=== PATIENT | male | born 1960 | race Caucasian/White ===

== ENCOUNTER 2017-10-09 07:30 | Inpatient (IN) | payer BC ==
--- NOTE | 2017-09-26 10:22 | HP ---
HISTORY AND PHYSICAL: DATE OF ADMISSION/SURGERY: 10/09/17 DATE OF OFFICE VISIT: 09/24/17 SURGEON: Gloria Lazo MD * (DICTATED BY BUNNY BERMUDEZ) PROCEDURE: Left total knee arthroplasty. CHIEF COMPLAINT: Left knee pain. HISTORY OF PRESENT ILLNESS: Mr. Weinberg is a 57-year-old gentleman with continued complaints of left knee pain. X-rays confirmed end-stage osteoarthritis. He has elected to proceed with a left total knee arthroplasty, which is scheduled for 10/09/[address] Lazo. PAST MEDICAL HISTORY: Hypertension and prior left femur fracture. PAST SURGICAL HISTORY: Bilateral total hip arthroplasties, surgery for ruptured spleen, unknown surgery for left femur fracture with a avinash placement and subsequently avinash removal. CURRENT MEDICATIONS: 1. [place]. 2. Lisinopril 20 mg daily. ALLERGIES: None. FAMILY HISTORY: Diabetes. SOCIAL HISTORY: He is a 57-year-old gentleman who lives alone. He does not smoke or use drugs. He uses alcohol often. REVIEW OF SYSTEMS: A complete 14-point review of systems was reviewed with the patient was all negative or noncontributory. He denies history of DVT, PE, hepatitis C, or HIV. PHYSICAL EXAMINATION GENERAL: He is well-developed, well-nourished, in no acute distress. VITAL SIGNS: He stands 6 feet tall, weighs 270 pounds. His blood pressure is 128/86, his heart rate is 80. HEENT: Normocephalic, atraumatic. NECK: Supple. No palpable lymph nodes. PULMONARY: Lungs are clear to auscultation bilaterally. CARDIO: Regular rate and rhythm. Strong S1 and S2. ABDOMEN: Soft, nontender, and nondistended. NEUROLOGIC: He is alert and oriented x3. Cranial nerves II through XII are intact. MUSCULOSKELETAL: Left lower extremity skin is intact. There are no open wounds or abrasions. He has a moderate effusion. His left lower extremity is at least 1 inch shorter than the right. Range of motion is 5 to 125 degrees of flexion with patellofemoral crepitus. No varus or valgus instability. 2+ dorsalis pedis pulses. His lower extremity muscular group strengths are intact at 5/5. He has intact sensation. ASSESSMENT AND PLAN: Mr. Weinberg is a 57-year-old gentleman with severe posttraumatic end-stage arthritis of the left knee. He has failed conservative management and elected to proceed with a left total knee arthroplasty, which is scheduled for 10/09/[address] Lazo discussed the risks and benefits of the surgery at today's visit and all of his questions were answered. He will follow with Dr. Lazo 2 weeks after the surgery. BUNNY BERMUDEZ [id number]/[facility] #: [id number] MTDKamryn
--- NOTE | 2017-10-27 14:47 | HP ---
HISTORY AND PHYSICAL: DATE OF ADMISSION/SURGERY: 11/13/17 SURGEON: Gloria Lazo MD * (DICTATED BY BUNNY BERMUDEZ) PROCEDURE: Left total knee arthroplasty. CHIEF COMPLAINT: Left knee pain. HISTORY OF PRESENT ILLNESS: Mr. Weinberg is 57-year-old gentleman who complains of some left knee pain secondary to end-stage osteoarthritis. He has failed conservative management and elected to proceed with a left total knee arthroplasty, which is scheduled for 11/13/17. PAST MEDICAL HISTORY: Hypertension, prior femur fracture on the left. PAST SURGICAL HISTORY: Bilateral total hip arthroplasties, IM avinash at the left femur, removal of avinash from the left femur and surgery for ruptured spleen. MEDICATIONS: 1. [place] 5/325. 2. Lisinopril 20 mg daily. ALLERGIES: None. FAMILY HISTORY: Diabetes. SOCIAL HISTORY: The 57-year gentleman lives alone. He does not smoke or use drugs. Uses occasional alcohol. REVIEW OF SYSTEMS: A complete 14 point review of systems was reviewed with the patient and it was all negative or noncontributory. PHYSICAL EXAMINATION GENERAL: He is well developed, well nourished, in no acute distress. VITAL SIGNS: He stands 6 feet tall, weighs 278 pounds. His blood pressure is 118/80, his heart rate is 80. HEENT: Normocephalic, atraumatic. NECK: Supple. No palpable lymph nodes. PULMONARY: Lungs are clear to auscultation bilaterally. CARDIO: Regular rate and rhythm. Strong S1 and S2. ABDOMEN: Soft, nontender, nondistended. NEUROLOGIC: Alert and oriented x3. Cranial nerves II through XII are intact. MUSCULOSKELETAL: Left lower extremity skin is intact. There are no open wounds or abrasions. He has some tenderness over the medial and lateral joint line. Range of motion 5 to 125 degrees of flexion with patellofemoral crepitus. No varus or valgus instability. 2+ dorsalis pedis pulses. Lower extremity muscular group strengths are intact at 5/5 and he has intact sensation. ASSESSMENT AND PLAN: Mr. Weinberg is a 57-year-old gentleman with complaints of left knee pain secondary to end-stage osteoarthritis. He has failed conservative management and elected to proceed with a left total knee arthroplasty, which is scheduled for 11/13/[address] Lazo discussed the risks and benefits of the surgery on today's visit. All of his questions are answered. He will follow up with Dr. Lazo 2 weeks after the surgery. BUNNY BERMUDEZ [id number]/[facility] #: [id number] NICO
[2017-11-12] MEDS ORDERED: Buffered Lidocaine 0.9% SYRIN* 5 ML/SYR SYRINGE INTRADERM ONE (11:53)
--- OUTSIDE RECORDS SUMMARY | 2017-11-13 08:10 | XMS REPORT ---
:1960 External Reference #:[id number] Author Organization [employer] Address [address] [address] Phone [phone] Care Team Providers Name Role Phone Omar Berry MD Primary Care Physician Unavailable Payers Type Date Identification Numbers Payment Provider Subscriber Commercial Effective: Policy Number: JENNIFER Piper Granados 2013 [id number] PayID: [id number] [facility] [id number] [address] [id number] Medigap Part B Effective: 2012 Policy Number: BS Piper Granados [id number] Expires: 2013 PayID: [id number] [facility] [id number] [address] Lu[address] [id number] Medigap Part B Effective: 2010 Policy Number: BS Piper Granados [id number] Expires: 2012 PayID: [id number] [place] [address] JAQUELIN Luong [id number] Problems Date Description Provider Status Onset: 08/27/2017 Localized, primary osteoarthritis Gloria Lazo M.D. Active Onset: 03/17/2017 Prosthetic arthroplasty of the hip Gloria Lazo M.D. Active Family History Date Family Member(s) Problem(s) Comments General Diabetes Social History Type Date Description Comments Lives With Alone Occupation Senior Loan [employer] ETOH Use Currently consumes alcohol Smoking Patient has never smoked Exercise Type/Frequency Does not exercise Allergies, Adverse Reactions, Alerts Date Description Reaction Status Severity Comments 03/17/2017 NKDA active Medications Medication Date Status Form Strength Qnty SIG Indications Ordering Provider Hydrocodone-Aceta 08/27/ Active Tablets 5-325mg 90tabs 1 tabs by M25.462 Gloria minophen 2018 mouth [place], every 6-8 M.D. hours as needed for pain. Lisinopril / Active Tablets 20mg 1 by mouth Unknown 0000 every day No Active 08/27/ Hx Unknown Medications 2017 - 2017 No Active 03/17/ Hx Unknown Medications 2016 - 2016 Vicodin 03/17/ Hx Tablets 5-300mg 60tabs 1-2 tabs M54.5 Gloria 2016 - by mouth [place], 08/09/ q12 hours M.D. 2016 as needed pain Cyclobenzaprine 03/17/ Hx Tablets 10mg 30tabs 1 tablet M54.5 Gloria HCL 2016 - by mouth [place], 08/09/ q8 hours M.D. 2016 as needed muscle spasms Coumadin 12/31/ Hx Tablets 2.5mg 90tabs take 1-3 Dirk 2011 - as Jennifer, 08/11/ directed M.D. 2017 at 5pm daily Percocet 12/31/ Hx Tablets 5-325mg 90tabs 1-2 tabs Dirk 2011 - po q4-6 Jennifer, 08/11/ prn pain M.D. 2016 Percocet 11/12/ Hx Tablets 5-325mg 20tabs 1 po q6h Dirk 2012 - prn pain Jennifer, 12/31/ M.D. 2011 Medications Administered in Office Medication Date Status Form Strength Qnty SIG Indications Ordering Provider Depomedrol Administered Injection Gloria 40MG Iván Lazo M.D. Vital Signs Date Vital Result Comment 10/27/2017 Height 72 inches 6'0" Weight 278.00 lb Heart Rate 80 /min BP Systolic 118 mmHg BP Diastolic 80 mmHg BMI (Body Mass Index) 37.7 kg/m2 09/24/2017 Height 72 inches 6'0" Weight 270.00 lb Heart Rate 80 /min BP Systolic 128 mmHg BP Diastolic 86 mmHg Body Temperature 98.4 F BMI (Body Mass Index) 36.6 kg/m2 08/27/2017 Height 72 inches 6'0" Weight 278.00 lb w/ boots Heart Rate 64 /min reg BP Systolic Sitting 120 mmHg Lue BP Diastolic Sitting 86 mmHg Lue Respiratory Rate 16 /min Pain Level 7 left knee BMI (Body Mass Index) 37.7 kg/m2 03/17/2017 Height 72 inches 6'0" Weight 250.00 lb Heart Rate 104 /min BP Systolic 188 mmHg BP Diastolic 122 mmHg BMI (Body Mass Index) 33.9 kg/m2 Results Test Date Test Result H/L Range Note CBC Auto Diff 10/06/2017 White Blood Count 12.6 10^3/uL High 3.5-10.8 1 Red Blood Count 5.43 10^6/uL High 4.0-5.4 1 Hemoglobin 17.0 g/dL 14.0-18.0 1 Hematocrit 48 % 42-52 1 Mean Corpuscular Volume 89 fL 80-94 1 Mean Corpuscular Hemoglobin 31 pg 27-31 1 Mean Corpuscular HGB Conc 35 g/dL 31-36 1 Red Cell Distribution Width 14 % 10.5-15 1 Platelet Count 246 10^3/uL 150-450 1 Mean Platelet Volume 7 um3 Low 7.4-10.4 1 Abs Neutrophils 9.5 10^3/uL High 1.5-7.7 1 Abs Lymphocytes 2.0 10^3/uL 1.0-4.8 1 Abs Monocytes 0.8 10^3/uL 0-0.8 1 Abs Eosinophils 0.2 10^3/uL 0-0.6 1 Abs Basophils 0.1 10^3/uL 0-0.2 1 Abs Nucleated RBC 0.1 10^3/uL 1 Granulocyte % 75.6 % 38-83 1 Lymphocyte % 16.0 % Low 25-47 1 Monocyte % 6.3 % 0-7 1 Eosinophil % 1.5 % 0-6 1 Basophil % 0.6 % 0-2 1 Nucleated Red Blood Cells % 0.8 1 Urinalysis Profile 10/06/2017 Urine Color Yuliana 1 Urine Appearance Cloudy 1 Urine Specific [place] 1.021 1.010-1.030 1 Urine pH 6.0 5-9 1 Urine Urobilinogen Negative Negative 1 Urine Ketones Negative Negative 1 Urine Protein 1+(30 mg/dL) Negative 1 Urine Leukocytes Negative Negative 1 Urine Blood Negative Negative 1 Urine Nitrite Negative Negative 1 Urine Bilirubin Negative Negative 1 Urine Glucose Negative Negative 1 Urine White Blood Cell Trace(0-5/hpf) Absent 1 Urine Red Blood Cell Trace(0-2/hpf) Absent 1 Urine Bacteria Absent Absent 1 Comp Metabolic Panel 10/06/2017 Sodium 135 mmol/L 133-145 1 Potassium 4.5 mmol/L 3.5-5.0 1 Chloride 95 mmol/L Low 101-111 1 Co2 Carbon Dioxide 33 mmol/L High 22-32 1 Anion Gap 7 mmol/L 2-11 1 Glucose 100 mg/dL 70-100 1 Blood Urea Nitrogen 21 mg/dL 6-24 1 Creatinine 0.90 mg/dL 0.67-1.17 1 BUN/Creatinine Ratio 23.3 High 8-20 1 Calcium 10.9 mg/dL High 8.6-10.3 1 Total Protein 8.3 g/dL 6.4-8.9 1 Albumin 5.3 g/dL High 3.2-5.2 1 Globulin 3.0 g/dL 2-4 1 Albumin/Globulin Ratio 1.8 1-3 1 Total Bilirubin 1.20 mg/dL High 0.2-1.0 1 Alkaline Phosphatase 88 U/L 34-104 1 Alt 22 U/L 7-52 1 Ast 21 U/L 13-39 1 Egfr Non- 87.3 >60 1 Egfr 112.3 >60 1, 2 Inr/Protime 10/06/2017 Inr 0.93 0.77-1.02 1 Laboratory test finding 10/06/2017 Partial Thrombo Time 34.2 seconds 26.0 -36.3 1 PTT Type & Screen 10/06/2017 Patient Blood Type O Negative 1 Antibody Screen NEGATIVE 1 Urine Culture And 10/06/2017 Urine Culture SEE RESULT 1, 3 Sensitivities BELOW CBC Auto Diff 02/23/2013 White Blood Count 13.3 10^3/uL High 4.8-10.8 Red Blood Count 4.63 10^6/uL 4.0-5.4 Hemoglobin 16.6 g/dL 14.0-18.0 Hematocrit 46 % 42-52 Mean Corpuscular Volume 99 fL High 80-94 Mean Corpuscular Hemoglobin 36 pg High 27-31 Mean Corpuscular HGB Conc 36 g/dL 31-36 Red Cell Distribution Width 13 % 10.5-15 Platelet Count 150 10^3/uL 150-450 Mean Platelet Volume 7 um3 Low 7.4-10.4 Abs Neutrophils 11.1 10^3/uL High 1.5-7.7 Abs Lymphocytes 1.2 10^3/uL 1.0-4.8 Abs Monocytes 0.9 10^3/uL High 0-0.8 Abs Eosinophils 0 10^3/uL 0-0.6 Abs Basophils 0 10^3/uL 0-0.2 Abs Nucleated RBC 0.01 10^3/uL Granulocyte % 83.3 % High 38-83 Lymphocyte % 9.1 % Low 25-47 Monocyte % 7.0 % 1-9 Eosinophil % 0.3 % 0-6 Basophil % 0.3 % 0-2 Nucleated Red Blood Cells % 0.1 Comp Metabolic Panel 02/23/2013 Sodium 136 mmol/L 133-145 Potassium 3.2 mmol/L Low 3.5-5.0 Chloride 97 mmol/L Low 101-111 Co2 Carbon Dioxide 26.0 mmol/L 22-32 Anion Gap 13.0 mmol/L High 2-11 Glucose 122 mg/dL High 70-100 Blood Urea Nitrogen 13 mg/dL 6-24 Creatinine 1.40 mg/dL 0.50-1.40 BUN/Creatinine Ratio 9.3 8-20 Calcium 9.7 mg/dL 8.1-9.9 Total Protein 8.1 g/dL 6.2-8.1 Albumin 4.5 g/dL 3.6-5.4 Globulin 3.6 g/dL 2-4 Albumin/Globulin Ratio 1.3 1-3 Total Bilirubin 2.7 mg/dL High 0.4-1.5 Alkaline Phosphatase 100 U/L 30-110 Alt 28 U/L 14-54 Ast 42 U/L 12-42 Egfr Non- 53.4 >60 Egfr 68.7 >60 4 Laboratory test finding 02/23/2013 Magnesium 1.7 mg/dL 1.7-2.6 Lipase 18 U/L Low 22-51 Bilrubin And Indirect 02/23/2013 Direct Bilirubin 0.5 mg/dL 0.1-0.5 Indirect Bilirubin 2.2 mg/dL High 0.3-1.0 1 PAIN IN LEFT KNEE, EFFUSION, LEFT KNEE, UNILATERAL 2 Because ethnic data is not always readily available, this report includes an eGFR for both -Americans and non- Americans. The National Kidney Disease Education Program (NKDEP) does not endorse the use of the MDRD equation for patients that are not between the ages of 18 and 70, are , have extremes of body size, muscle mass, or nutritional status, or are non- or non-. According to the National Kidney Foundation, irrespective of diagnosis, the stage of the disease is based on the level of kidney function: Stage Description GFR(mL/min/1.73 m(2)) 1 Kidney damage with normal or decreased GFR 90 2 Kidney damage with mild decrease in GFR 60-89 3 Moderate decrease in GFR 30-59 4 Severe decrease in GFR 15-29 5 Kidney failure <15 (or dialysis) 3 SEE RESULT BELOW Name: DANICA GRANADOS : [address]: Gloria Lazo MD Acct: [id number] Unit: [id number] AGE: 57 Location: [facility] Re10/06/17 SEX: M Status: REG REF SPEC: [id number] BETH: 10/06/17-[address] [facility] [address]: Gloria Lazo MD REQ: [id number] RECD: 10/06/17167 STATUS: LAITH CEBALLOS DR: Omar Berry MD _ SOURCE: URINE SPDESC: ORDERED: Urine Culture QUERIES: Urine Source: Clean Catch Procedure Result Reported Site Urine Culture Final 10/07/17- 1211 ML No Growth (<1,000 CFU/mL) * ML - MAIN LAB ([facility]) . END OF REPORT * ML=Testing performed at Main Lab DEPARTMENT OF PATHOLOGY, [address] [place] [address] Tiago Regalado M.D. Director [facility] # [id number] 4 Because ethnic data is not always readily available, this report includes an eGFR for both -Americans and non- Americans. The National Kidney Disease Education Program (NKDEP) does not endorse the use of the MDRD equation for patients that are not between the ages of 18 and 70, are , have extremes of body size, muscle mass, or nutritional status, or are non- or non-. According to the National Kidney Foundation, irrespective of diagnosis, the stage of the disease is based on the level of kidney function: Stage Description GFR(mL/min/1.73 m(2)) 1 Kidney damage with normal or decreased GFR 90 2 Kidney damage with mild decrease in GFR 60-89 3 Moderate decrease in GFR 30-59 4 Severe decrease in GFR 15-29 5 Kidney failure <15 (or dialysis) Procedures Date CPT Code Description Status 08/27/2017 87234 Inject/Drain Joint/Bursa Major Completed 06/09/2014 18877 ECHO Stress Test Incl Perf Contiuous ekg Monitoring Completed W/Phys Superv 02/07/2012 46645 Rad Exam; Hip Unilat Completed 02/07/2012 70287 Rad Exam; Pelvis Completed 01/07/2012 66192 THR Total Hip Replacement Completed 01/07/2012 20561 THR Total Hip Replacement Completed 11/13/2011 66637 Rad Exam; Hip Unilat Completed 11/13/2011 86611 Rad Exam; Pelvis Completed Encounters Type Date Location Provider CPT E/M Dx Office Visit 08/27/2017 [facility] Lazo M.D. 74988 M25.562 10:00a [facility] [place] M25.462 M17.12 Office Visit 03/17/2017 3:30p [facility] Lazo M.D. 47578 M54.5 C.M.A. Z96.641 Z96.642 Office Visit 08/19/2012 10:45a [facility]a Szymanski, 20262 715.95 C.M.A. RPA-C Office Visit 11/13/2011 1:30p [facility] Venkat Rodriguez M.D. 67030 715.95 C.M.A. Plan of Care Future Appointment(s):11/13/2017 2:30 pm - Gloria Lazo M.D. at [facility] [place]10/27/2017 - Gloria Lazo M.D.M25.562 Pain in left kneeFollow up:Follow up: 2 weeks after vhnzxxeN69.462 Effusion, left kneeM17.12 Unilateral primary osteoarthritis, left knee
[2017-11-13] MEDS ORDERED: ceFAZolin 1 GM in Dextrose (*) 1 GM/50 ML BAG IVPB ONE (08:25)
[2017-11-13] MEDS ORDERED: ceFAZolin 2 GM PREMIX (*) 2 GM/50 ML BAG IVPB ONE (08:25)
[2017-11-13] MEDS ORDERED: Famotidine IV* 10 MG/ML 2 ML (20 mg) ONE (10:03)
[2017-11-13] MEDS ORDERED: fentaNYL* 50 MCG/ML 2 ML VIAL (100 MCG VIAL) ONE (10:03)
[2017-11-13] MEDS ORDERED: Midazolam* 1 MG/ML 5 ML VIAL (5 MG) ONE ×2 (10:03→11:16)
[2017-11-13] MEDS ORDERED: ROPIVACAINE 5 MG/ML 30 ML BTL (0.5%) ONE (10:06)
[2017-11-13] MEDS ORDERED: Bupivacaine 0.5% SDV PF* 10-30ML VIAL ONE (11:17)
[2017-11-13] MEDS ORDERED: Bupivacaine-MPF SPINAL* 7.5 MG/2 ML AMP ONE (11:21)
[2017-11-13] MEDS ORDERED: Dexmedetomidine* 200 MCG/2 ML 2 ML VIAL ONE (11:36)
[2017-11-13] MEDS ORDERED: Dexamethasone IV* 4 MG/ML 1 ML (4 MG) ONE (11:37)
[2017-11-13] MEDS ORDERED: diPHENhydraMINE IV* 50 MG/ML 1 ml VIAL (BENADRYL) ONE (11:42)
[2017-11-13] MEDS ORDERED: Midazolam* 1 MG/ML 2 ML VIAL (2 MG) ONE (11:45)
[2017-11-13] MEDS ORDERED: Hetastarch in NS* 500 ML IV ONE (11:59)
[2017-11-13] MEDS ORDERED: Magnesium Hydroxide LIQ* 30 ML UDC PO PRN (12:53)
[2017-11-13] MEDS ORDERED: diPHENhydraMINE IV* 50 MG/ML 1 ml VIAL (BENADRYL) IV PRN (12:53)
[2017-11-13] MEDS ORDERED: Ondansetron INJ* 2 MG/ML VIAL IV PRN (12:53)
[2017-11-13] MEDS ORDERED: Cyclobenzaprine TAB* 10 MG PO PRN (12:53)
[2017-11-13] MEDS ORDERED: oxyCODONE/Acetamin 5/325 MG* TAB PO PRN (12:53)
[2017-11-13] MEDS ORDERED: Bupivacaine 0.25% SDV* 30 ML ONE (13:14)
--- NOTE | 2017-11-13 13:40 | RAD ---
INDICATION: Total LEFT knee replacement. COMPARISON: August 27, 2017 radiographs. TECHNIQUE: 2.4 seconds fluoroscopy. FINDINGS: Spot AP image documents total knee prosthesis in place. IMPRESSION: Procedural fluoroscopy. CPT II Codes: G9500
[2017-11-13] MEDS ORDERED: Naloxone* 0.4 MG/ML 1 ML VIAL IV PRN (14:31)
[2017-11-13] MEDS ORDERED: DiMENhydriNATE IV* 50 MG/ML VIAL IV PUSH PRN (14:31)
[2017-11-13] MEDS ORDERED: Ketorolac INJ* 30 MG/ML 1 ML VIAL IV PRN (14:31)
[2017-11-13] MEDS ORDERED: fentaNYL* 50 MCG/ML 2 ML VIAL (100 MCG VIAL) IV PRN (14:31)
[2017-11-13] MEDS ORDERED: Acetaminophen TAB* 325 MG PO PRN (14:31)
[2017-11-13] MEDS ORDERED: PROCHLORPERAZINE INJ 5 MG/ML 2 ML VIAL IV PRN (14:31)
--- NOTE | 2017-11-13 15:31 | RAD ---
INDICATION: Left total replacement COMPARISON: August 27, 2017 TECHNIQUE: Portable AP and crosstable lateral were obtained. FINDINGS: There is interval left knee arthroplasty. Both femoral and tibial components appear well seated. There is no overlying cooling jacket. IMPRESSION: LEFT KNEE ARTHROPLASTY. NO EVIDENCE OF HARDWARE FAILURE
[2017-11-13] MEDS: oxyCODONE/Acetamin 5/325 MG* TAB PO PRN ×2 (17:55→22:13)
[2017-11-13] MEDS ORDERED: Warfarin TAB(*) 6 MG PO ONE (18:00)
[2017-11-13] MEDS: Morphine INJ* 2 MG/ML 1 ML CARPUJECT IV PRN ×2 (19:04→21:15)
[2017-11-13] MEDS: Docusate CAP* 100 MG PO SCH (19:28)
[2017-11-13] MEDS: ceFAZolin 1 GM in Dextrose (*) 1 GM/50 ML BAG IVPB SCH (19:29)
[2017-11-13] MEDS: Magnesium Hydroxide LIQ* 30 ML UDC PO SCH (19:38)
[2017-11-13] MEDS: oxyCODONE TAB* 5 MG TAB PO PRN (20:12)
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
[2017-11-14] MEDS: oxyCODONE TAB* 5 MG TAB PO PRN ×3 (00:21→10:09)
[2017-11-14] MEDS: oxyCODONE/Acetamin 5/325 MG* TAB PO PRN ×4 (03:08→16:14)
[2017-11-14] MEDS: Morphine INJ* 2 MG/ML 1 ML CARPUJECT IV PRN ×2 (03:09→13:13)
[2017-11-14] MEDS: ceFAZolin 1 GM in Dextrose (*) 1 GM/50 ML BAG IVPB SCH ×2 (03:50→12:09)
[2017-11-14 05:41] LABS: Hematocrit 35 % (42-52); Hemoglobin 12.4 g/dl (14.0-18.0); Mean Platelet Volume 6.7 um3 (7.4-10.4); Platelet Count 214 10^3/ul (150-450)
[2017-11-14 05:45] LABS: INR 1.11 (0.77-1.02)
[2017-11-14 05:56] LABS: EGFR Non-African American 107.7 (>60)
--- NOTE | 2017-11-14 08:58 | PN ---
Progress Note - Progress Note Date of Service: 11/14/17 SOAP: Subjective: 57 y/o male s/p L TKA by Dr. Lazo 11/13/2017. VSS, afebrile overnight. Patient reports pain controlled with pain medication, worked well with PT, would like D/C to home tomorrow. NO questions re: surgery. Objective: General- Well appearing, NAD, AO sitting in chair comfortably. MSK- LLE- DF/PF = b/l, PT 2+, negative homans sign b/l, surgical dressing intact , acute blood loss noted on dressing near where drain was pulling by DR. Lazo this AM, area visualized, no acute bleeding seen, re-dressed with gauze with original YAEL. Vital Signs Temp 98.0 F 11/14/17 11:32 Pulse 79 11/14/17 11:32 Resp 18 11/14/17 12:09 BP 109/72 11/14/17 11:32 Pulse Ox 99 11/14/17 11:32 Intake & Output 11/13/17 11/14/17 11/14/17 18:59 06:59 18:59 Intake Total 3060 1747 Output Total 750 1075 Balance 2310 672 Weight 126.371 kg Intake: IV Fluids 2600 997 HEXTEND 500 LR 2000 997 NS 50ML, Cefazolin 1G 50 NS 50ML, Cefazolin 2G 50 IVPB 50 ABX - CEFAZOLIN 50 Oral 460 700 Output: Urine 0 Kamara 750 1075 Assessment: Stable 57 y/o male s/p L TKA by Dr. Lazo 11/13/2017. Plan: - DVT prophylaxis- lovenox, coumadin 5mg tonight, INR 1.11 - Continue PT/ OT - Follow up with Dr. Lazo within 10-14 days - H&H - stable - post-op IV ABX - Running. - Probably D/C tomorrow to home with VNS, PT - Continue to monitor drain site. Acetaminophen (Tylenol Tab*) 650 mg PO ONCE PRN PRN Reason: PAIN - MILD Cyclobenzaprine HCl (Flexeril Tab*) 10 mg PO TID PRN PRN Reason: SPASMS Last Admin: 11/13/17 19:04 Dose: 10 mg Diphenhydramine HCl (Benadryl Iv*) 25 mg IV Q6H PRN PRN Reason: itching Last Admin: 11/13/17 22:14 Dose: 25 mg Docusate Sodium (Colace Cap*) 100 mg PO BID [facility] Last Admin: 11/14/17 09:32 Dose: 100 mg Enoxaparin Sodium (Lovenox(*)) 30 mg SUBCUT Q24H [facility] Last Admin: 11/14/17 09:34 Dose: 30 mg Folic Acid (Folvite Tab*) 1 mg PO DAILY [facility] Last Admin: 11/14/17 09:32 Dose: 1 mg Lactated Ringer's (Lactated Ringers 1000 Ml Bag*) 1,000 mls @ 100 mls/hr IV PER RATE [facility] Last Admin: 11/14/17 03:11 Dose: 100 mls/hr Lactulose (Lactulose*) 30 ml PO Q6H PRN PRN Reason: constipation Magnesium Hydroxide (Milk Of Magnesia Liq*) 30 ml PO BID [facility] Last Admin: 11/14/17 09:33 Dose: 30 ml Magnesium Hydroxide (Milk Of Magnesia Liq*) 30 ml PO Q6H PRN PRN Reason: constipation Morphine Sulfate (Morphine Inj (Syringe)*) 2 mg IV Q2H PRN PRN Reason: PAIN Last Admin: 11/14/17 03:09 Dose: 2 mg Multivitamins/Minerals (Theragran/Minerals Tab*) 1 tab PO DAILY [facility] Last Admin: 11/14/17 09:33 Dose: 1 tab Ondansetron HCl (Zofran Inj*) 4 mg IV Q6H PRN PRN Reason: nausea Oxycodone HCl (Roxycodone Tab*) 10 mg PO Q4H PRN PRN Reason: PAIN - SEVERE Last Admin: 11/14/17 10:09 Dose: 10 mg Oxycodone/Acetaminophen (Percocet 5/325 Tab*) 2 tab PO Q4H PRN PRN Reason: PAIN - MODERATE TO SEVERE Last Admin: 11/14/17 12:09 Dose: 2 tab Oxycodone/Acetaminophen (Percocet 5/325 Tab*) 1 tab PO Q4H PRN PRN Reason: PAIN - MODERATE Pharmacy Profile Note (Coumadin Daily Reminder*) 1 note FOLLOW UP 1700 [facility] Last Admin: 11/13/17 17:22 Dose: 1 note Thiamine HCl (Vitamin B-1 Tab*) 100 mg PO DAILY [facility] Last Admin: 11/14/17 09:33 Dose: 100 mg Warfarin Sodium (Coumadin Tab(*)) 5 mg PO ONCE@1700 ONE PRN Reason: Protocol Stop: 11/14/17 17:01
[2017-11-14] MEDS ORDERED: Vitamin THERAPEUTIC TAB PO SCH (09:00)
[2017-11-14] MEDS ORDERED: Influenza VAC *QUAD* 2017-18* 0.5 ML SYRINGE IM ONE (09:00)
[2017-11-14] MEDS ORDERED: Folic Acid TAB* 1 MG PO SCH (09:00)
[2017-11-14] MEDS ORDERED: Enoxaparin(*) 30 MG/0.3 ML SYR SUBCUT SCH (09:00)
[2017-11-14] MEDS ORDERED: Multivitamins/Minerals TAB PO SCH (09:00)
[2017-11-14] MEDS ORDERED: Lisinopril TAB* 10 MG PO SCH (09:00)
[2017-11-14] MEDS ORDERED: Thiamine TAB* 100 MG TAB PO SCH (09:00)
[2017-11-14] MEDS: Docusate CAP* 100 MG PO SCH (09:32)
[2017-11-14] MEDS: Magnesium Hydroxide LIQ* 30 ML UDC PO SCH (09:33)
[2017-11-14 12:12] VITALS: BP 109/72
--- NOTE | 2017-11-14 12:33 | OP ---
OPERATIVE REPORT: DATE OF OPERATION: 11/13/17 DATE OF : 62 SURGEON: Gloria Lazo MD COORDINATOR CARDIOPULMONARY SERVICES: BUNYN Bermudez Ms. did help throughout the procedure with preparation of the leg, wound retraction, manipulation of the knee, and wound closure. ANESTHESIOLOGIST: Robert Hoyos MD ANESTHESIA: Spinal. PRE-OP DIAGNOSIS: Severe end-stage degenerative osteoarthritis of the left knee joint. POST-OP DIAGNOSIS: Severe end-stage degenerative osteoarthritis of the left knee joint. OPERATIVE PROCEDURE: Left total knee arthroplasty. INDICATIONS: Mr. Weinberg is a 57-year-old gentleman with years of increasingly severe left knee pain. The patient failed conservative treatment with antiinflammatories, pain medication, intraarticular injection, and physical therapy. His radiograph showed [id number] arthritis. The patient elected to undergo left total knee arthroplasty due to continued pain and decreased quality of life. The patient had a prior femur fracture, therefore custom implant cutting guides were chosen, these were obtained using full length films, MRI, and the [employer] system. Informed consent was obtained from the patient. He understood the risks of surgery included but were not limited to bleeding, infection, damage to nearby structures, continued pain, need for further surgery, intraoperative fracture, nerve palsy, hardware failure or loosening, knee stiffness, loss of motion, stroke, heart attack, blood clot, and . He wished to proceed. HARDWARE USED: This is cemented [employer] total knee arthroplasty hardware. Two packages of Simplex bone cement. For the femur, a left size 7 Legion posterior stabilized femoral component. For the tibia, a left size 6 Katelyn II tibial baseplate. For the insert, a 9-mm posterior stabilized articular insert 5/6 and for the patella 35 mm 3-peg all poly patella. TOURNIQUET TIME: 58 minutes. ESTIMATED BLOOD LOSS: 300 cc. COMPLICATIONS: None. SPECIMENS: Bone and cartilage from the left knee joint sent to Pathology. INTRAOPERATIVE FINDINGS: Intraoperatively, Mr. Weinberg was noted to have severe end-stage arthritis in all 3 compartments. He has full-thickness loss of cartilage in all 3 compartments. DESCRIPTION OF PROCEDURE: Mr. Weinberg was identified in the preanesthesia unit. His left lower extremity was marked as the correct operative side. Informed consent was signed and placed in the chart. The patient was taken to the operating room and placed under spinal anesthesia. A Kamara catheter was placed. Tourniquet was placed on the left thigh. Left lower extremity was prepped and draped in the usual sterile fashion. Preoperative time-out was made to correctly identify the patient, side, and site. Appropriate perioperative antibiotics were given within 1 hour of incision. Tourniquet was inflated until tourniquet time for this procedure was 58 minutes. A midline incision was made with a 10 blade and carried down to the extensor mechanism. A new 10 blade was used to make a standard medial parapatellar arthrotomy. Patella was subluxed laterally. Electrocautery was used to subperiosteally elevate the soft tissue off the superomedial tibia to the mid sagittal plane. The knee was flexed up. Anterior horn of the lateral meniscus and ACL were sharply released. The distal femoral custom cutting block was pinned on the distal femur. Oscillating saw was used to make the distal femoral cut. The rotation guide was placed and the knee was sized to a size 7. Size 7 multi-cutting jig was pinned on the distal femur. Oscillating saw was used to make the appropriate 4 chamfer cuts. The PCL was completely released. The tibia was subluxed anteriorly. The proximal tibial prefabricated custom cutting guide was pinned on the proximal tibia. Oscillating saw was used to make the appropriate proximal tibial cut. The bone was carefully removed. The knee was brought out into full extension. Spacer block had excellent fit with appropriate medial and lateral ligamentous balancing. The knee was in full extension. Flexion and extension gaps were well balanced. The knee was flexed up. Lamina shirring tender was placed both medially and laterally. Electrocautery was used to remove any remaining meniscus, both medially and laterally. Curved osteotome was used to remove any posterior osteophytes. Tibial tray and drop avinash were placed and confirmed satisfactory tibial cut. A size 7 left femoral trial was impacted on to the distal femur and had excellent fit. The box for the posterior stabilized implant was prepared using a reamer and box cut osteotome. Size 6 tibial tray trial with a 9-mm insert trial was placed and the knee was brought out into full range of motion. The knee had full extension to 130 degrees of flexion with satisfactory patellofemoral tracking. The patella was everted. 9 mm of patellar bone and cartilage was carefully removed using an oscillating saw. The patella was sized to a size 35. Three peg holes were drilled through the size 35 guide. A 35 trial was placed and the knee was taken through a range of motion. There was satisfactory patellofemoral tracking. All trials were carefully removed. The tibia was subluxed anteriorly and sized to a size 6. Proximal tibia was prepared using a size 6 keel punch. All bony cut surfaces were copiously irrigated with sterile saline and dried. Final implants were cemented into place starting with the tibia followed by the femur and lastly the patella. A 9-mm insert trial was placed and the knee was brought out into full extension. Tourniquet was turned down at 58 minutes. The cement was allowed to fully cure and the knee was copiously irrigated with sterile saline. Electrocautery was used to obtain meticulous hemostasis. Once the cement fully cured, the insert trial was removed. Any excess cement was removed from around the capsule and hardware. Final insert chosen was a 9- mm posterior stabilized articular insert, size 5/6. This was locked into position on the tibial tray. Stability of the insert was checked and rechecked and noted to be stable. The extensor mechanism was closed using interrupted #1 Vicryl over a medium Hemovac drain. The rest of the incision was closed in a layered fashion using 0 and 2-0 Vicryls. Skin was closed using running 3-0 nylon suture. Sterile Xeroform, 4x4s, and Webril were used to cover the incision. Omari wrap and cold pack were placed over this. The patient's anesthesia was reversed without difficulty. He was taken to the PACU in stable condition. Intended weightbearing will be weightbearing as tolerated. Intended DVT prophylaxis will be Coumadin with a Lovenox bridge. [id number]/[facility] #: [id number] [facility] HOSPITALKamryn
[2017-11-14] MEDS ORDERED: Warfarin TAB(*) 5 MG PO ONE (17:00)
== END 2017-11-14 16:50 | disposition home health service (06) | DRG 302 ==
LOC: AA 11-13 08:05 → SSU 11-13 16:46
PROVIDERS: ADMIT Orthopaedic Surgery Adult Reconstructive Orthopaedic Surgery; ATTEND Hospitalist
PROC: 0SRD0J9 Replacement of Left Knee Joint with Synthetic Substitute, Cemented, Open Approach (ICD-10-PCS; principal; 2017-11-13 10:45)
DX: M17.12 Unilateral primary osteoarthritis, left knee (principal); I10 Essential (primary) hypertension; Z96.643 Presence of artificial hip joint, bilateral; F41.8 Other specified anxiety disorders; G47.33 Obstructive sleep apnea (adult) (pediatric); G89.29 Other chronic pain; M25.762 Osteophyte, left knee; Z83.3 Family history of diabetes mellitus; Z72.89 Other problems related to lifestyle; Z82.5 Family history of asthma and other chronic lower respiratory diseases; Z86.19 Personal history of other infectious and parasitic diseases
CPT/HCPCS: 36415; 76000; 80048; 85014; 85018; 85049; 85610; 86850; 86900; 86901; 90686; A9270-GY; G8987-GO-CJ; G8988-GO-CI; J0690; J1100; J1200; J1650; J2250; J2270; J2795; J3010